=== PATIENT | female | born 1990 | race Caucasian/White ===

== ENCOUNTER 2017-02-01 13:16 | Emergency (ER) | payer OTHER ==
[2017-02-01 13:38] VITALS: BP 101/62; PULSE 62; RESP 16; TEMP 98.2; O2SAT 96
--- NOTE | 2017-02-01 14:32 | EDPHY ---
H & P Time Seen by Provider: 02/01/17 13:44 HPI/ROS: Chief complaint. Head injury HPI. Patient is a 26-year-old female with head injury that occurred at work 10 days ago. She was bending down and stood up into a counter and hit her head. No loss of consciousness. She then went to an urgent care 4 days after the injury and was diagnosed with concussion. She has had continued mild headaches and left-sided neck pain. She had slight blurry vision the 1st 2 days but this is resolved. Her symptoms have been worse as she has started to try to go on runs since her injury. No focal weakness paresthesias to arms or legs. ROS Constitutional. no fever/chills, no weakness Eyes. no problems with vision now though slight blurry vision originally ENT. no sore throat, no nasal drainage Cardiovascular. no chest pain Respiratory. no shortness of breath, no cough Abdominal. no abdominal pain, no nausea/vomiting, no diarrhea . no problems urinating MS. neck pain after injury Skin. no rash Lymph. no swollen glands Neuro. Headache after head injury Past Medical/Surgical History: Asthma Social History: Single, nonsmoker, no alcohol Smoking Status: Never smoked Physical Exam: General Appearance: Alert pleasant well-developed female mild distress vital signs are stable Eyes: Pupils equal and round no pallor or injection. ENT, no hemotympanum or John sign. No oral pharyngeal or dental trauma. No bump to the head Respiratory: There are no retractions, lungs are clear to auscultation. Cardiovascular: Regular rate and rhythm. Gastrointestinal: Abdomen is soft and nontender, no masses, bowel sounds normal. Neurological: Awake and alert, sensory and motor exams grossly normal. Skin: Warm and dry, no rashes. Musculoskeletal: Neck is tender along the paracervical muscles on both sides but not over the spinous process Extremities symmetrical, full range of motion. Psychiatric: Patient is oriented X 3, there is no agitation. Constitutional: Initial Vital Signs Temperature (C) 36.8 C 02/01/17 13:36 Heart Rate 62 02/01/17 13:36 Respiratory Rate 16 02/01/17 13:36 Blood Pressure 101/62 02/01/17 13:36 O2 Sat (%) 96 02/01/17 13:36 O2 Delivery Mode Room Air Allergies/Adverse Reactions: No Known Allergies Allergy (Unverified 02/01/17 13:35) Home Medications: Medication Instructions Recorded NK [No Known Home Meds] 02/01/17 Medical Decision Making ED Course/Re-evaluation: Patient remains stable. She and I discussed concussions and post concussion syndrome. We discussed treatment plan including criteria for return and importance of follow-up and further evaluation. She expresses understanding and agreement Differential Diagnosis: No evidence for intracranial bleeding or skull fracture or cervical spine injury. I think this is post concussion syndrome Departure - Departure Disposition: Home, Routine, Self-Care Clinical Impression: Post concussion syndrome Condition: Good Instructions: Post Concussion Syndrome (ED) Additional Instructions: Ibuprofen 400 mg every 6 hours. Easy activity with gradual increase in activity such as running. Caution with screen time. No activity that may result in head injury for 1 week. Return for worsening symptoms. Follow up with Dr. Gunderson for continuing symptoms Referrals: NONE *PRIMARY CARE P,. [Primary Care Provider] - As per Instructions Maryam Gunderson MD [Medical Doctor] - 2-3 days, call for appt. Stand Alone Forms: Work Limited Duty
== END 2017-02-01 14:46 | disposition home or self-care (01) ==
DX: G44.309 Post-traumatic headache, unspecified, not intractable (principal); F07.81 Postconcussional syndrome; J45.909 Unspecified asthma, uncomplicated